=== PATIENT | female | born 1950 | race Caucasian/White ===

== ENCOUNTER 2017-05-10 05:58 | Day surgery (SDC) | payer MEDICARE, BC ==
[2017-05-08 11:33] VITALS: BMI 30.9
[2017-05-10] MEDS ORDERED: Bupivacaine/Epinephrine 0.25% 30 ML VIAL ONE (06:45)
[2017-05-10] MEDS ORDERED: Fentanyl 100 MCG/2 ML VIAL ONE (07:11)
[2017-05-10] MEDS ORDERED: Midazolam HCl 2 mg/2 ml Vial ONE ×2 (07:11→07:26)
[2017-05-10] MEDS ORDERED: Ondansetron HCl/PF 4 MG/2 ML Vial ONE (07:40)
[2017-05-10] MEDS ORDERED: Dexamethasone 20 MG/5 ML VIAL ONE (07:40)
[2017-05-10] MEDS ORDERED: Ketorolac Tromethamine 30 MG/ML VIAL ONE (07:40)
[2017-05-10] MEDS ORDERED: Lidocaine 1% PF 5 ML VIAL ONE (07:40)
[2017-05-10] MEDS ORDERED: Propofol 200 MG/20 ML VIAL ONE (07:40)
[2017-05-10] MEDS ORDERED: Glycopyrrolate 0.2 MG/ML 5 ML SYRINGE ONE (07:40)
--- NOTE | 2017-05-10 09:04 | RAD ---
SINGLE VIEW OF CHEST: Date: 05/10/17 COMPARISON: 02/23/17. HISTORY: MediPort placement for breast cancer. FINDINGS: Single view of the chest shows normal sized cardiomediastinal silhouette. A left subclavian Mediport is seen with its tip in the superior vena cava. No pneumothorax is seen. There is no evidence of co nsolidation, mass, or pleural effusion. IMPRESSION: No evidence of acute cardiopulmonary disease. POS: [facility]
--- NOTE | 2017-05-10 10:46 | OP ---
DATE OF PROCEDURE: 05/10/2017 PREOPERATIVE DIAGNOSIS: Breast cancer. SURGEON: Gasper Lindsay M.D. PROCEDURE PERFORMED: MediPort placement. INDICATIONS: This is a 66-year-old female who was diagnosed with metastatic breast cancer and needs access for chemotherapy. FINDINGS: Left subclavian placement. PROCEDURE: After informed consent was obtained, the patient was taken to the operating room and giv en total intravenous anesthesia, placed in the supine position. Her chest was prepped and draped in the usual fashion. Local anesthesia infiltrated subcutaneously and deep. An introducer needle ins erted left subclavian. Good backflow of venous blood. J-wire threaded easily. The skin and subcut aneous anesthetized. A transverse chest wall incision was performed. The subcu divided sharply. A pocket was created sharply with electrocautery. Then utilizing the tunneling device, the 2 incisio ns were connected and the catheter placed through the tunnel. The catheter was connected to the Common Sensing iPort and the system was flushed with heparinized saline. Then the catheter was cut to size and a p eel-away introducer inserted over the wire. The wire was removed, the catheter inserted through the peel-away introducer and the peel-away introducer removed. Fluoroscopy again performed. This show ed good placement in superior vena cava. The port was attached to the chest wall with interrupted 2 -0 Prolene suture. Subcutaneous reapproximated with interrupted 3-0 Vicryl. The system was accesse d with a Arreola needle. Good backflow of venous blood, flushed with heparinized saline. The skin cl osed with a running subcuticular 4-0 Rapide. Dermabond applied. The patient tolerated the procedur e well and transferred to recovery in good condition. Sponge and needle count verified correct x2.
== END 2017-05-10 10:01 | disposition home or self-care (01) ==
LOC: SDC 05:58
PROVIDERS: ATTEND Surgery
PROC: 05H633Z Insertion of Infusion Device into Left Subclavian Vein, Percutaneous Approach (ICD-10-PCS; principal; 2017-05-10)
DX: C50.919 Malignant neoplasm of unspecified site of unspecified female breast (principal); I10 Essential (primary) hypertension; G47.33 Obstructive sleep apnea (adult) (pediatric); F32.9 Major depressive disorder, single episode, unspecified; Z90.49 Acquired absence of other specified parts of digestive tract; Z90.710 Acquired absence of both cervix and uterus; Z98.890 Other specified postprocedural states; Z98.891 History of uterine scar from previous surgery; Z88.5 Allergy status to narcotic agent; Z91.041 Radiographic dye allergy status; Z91.048 Other nonmedicinal substance allergy status; Z79.899 Other long term (current) drug therapy
CPT/HCPCS: 36561; 71010; C1788; J0131; J1100; J1170; J1642; J1885; J2001; J2250; J2405; J2704; J3010

== ENCOUNTER 2017-09-04 13:46 | Day surgery (SDC) | payer MEDICARE, BC ==
[2017-09-04] MEDS ORDERED: diphenhydrAMINE 25 MG CAP PO SCH (14:30)
[2017-09-04] MEDS ORDERED: Acetaminophen 500 MG TAB PO SCH (14:30)
[2017-09-04 23:02] VITALS: BP 132/60; TEMP 97.7
[2017-09-04 23:18] LABS: #Lymphocytes 0.6 thou/uL (1.20-3.40); #Monocytes 0.1 thou/uL (0.11-0.59); #Neutrophils 1.4 thou/uL (1.40-6.50); %Eosinophils 1.1 % (0.0-10.0); %Lymphocytes 26.5 % (21.0-51.0); %Monocytes 6.6 % (0.0-10.0); Mean Platelet Volume 8.1 fL (7.4-10.4); Red Blood Cell (RBC) Count 3.17 mill/uL (4.20-5.40); White Blood Cell (WBC) Count 2.2 thou/uL (4.8-10.8)
== END 2017-09-04 23:11 | disposition home or self-care (01) ==
LOC: ONC/OP 13:46
PROVIDERS: ATTEND Internal Medicine Hematology & Oncology
PROC: 30233N1 Transfusion of Nonautologous Red Blood Cells into Peripheral Vein, Percutaneous Approach (ICD-10-PCS; principal; 2017-09-04)
DX: D64.9 Anemia, unspecified (principal); D69.6 Thrombocytopenia, unspecified; I10 Essential (primary) hypertension; Z88.5 Allergy status to narcotic agent; Z91.041 Radiographic dye allergy status; Z91.048 Other nonmedicinal substance allergy status; Z90.49 Acquired absence of other specified parts of digestive tract; Z90.710 Acquired absence of both cervix and uterus; Z98.890 Other specified postprocedural states; Z85.3 Personal history of malignant neoplasm of breast; Z80.0 Family history of malignant neoplasm of digestive organs
CPT/HCPCS: 36430; 80053; 82248; 83615; 84100; 84550; 85025; 86850; 86900; 86901; P9016

== ENCOUNTER 2017-09-17 13:37 | Emergency (ER) | payer MEDICARE, BC ==
[2017-09-17 14:09] LABS: #Lymphocytes 0.7 thou/uL (1.20-3.40); #Monocytes 0.2 thou/uL (0.11-0.59); #Neutrophils 2.5 thou/uL (1.40-6.50); %Basophils 1.3 % (0.0-1.0); %Eosinophils 0.7 % (0.0-10.0); %Lymphocytes 19.1 % (21.0-51.0); %Monocytes 6.3 % (0.0-10.0); %Neutrophils 72.6 % (42.0-75.0); Hemoglobin 12.6 g/dL (12.0-16.0); Mean Corpuscular HGB CONC 34.8 g/dL (32.0-36.0); Mean Corpuscular Hemoglobin 34.1 pg (27.0-31.0); Mean Corpuscular Volume 97.9 fl (81.0-99.0); Mean Platelet Volume 7.8 fL (7.4-10.4); Platelet Count 357 thou/uL (130-400); RBC Distribution Width 15.6 % (11.5-14.5); Red Blood Cell (RBC) Count 3.69 mill/uL (4.20-5.40); White Blood Cell (WBC) Count 3.4 thou/uL (4.8-10.8)
[2017-09-17] MEDS ORDERED: Metoprolol Tartrate 5 MG/5 ML VIAL ONE (14:14)
[2017-09-17 14:34] LABS: CKMB 0.3 ng/mL (0-6.6); Troponin I 0.032 ng/mL (< 0.028)
[2017-09-17 14:35] LABS: Anion Gap 14 mmol/L (10-20); BUN (Urea Nitrogen) 15 mg/dL (9.8-20.1); Carbon Dioxide 21 mmol/L (23-31); Chloride 105 mmol/L (98-107); Potassium 4.3 mmol/L (3.5-5.1); Sodium 136 mmol/L (136-145)
[2017-09-17 14:36] LABS: ALT (SGPT) 29 U/L (8-55); AST (SGOT) 24 U/L (5-34); Albumin 3.9 g/dL (3.4-4.8); Alkaline Phosphatase 88 U/L (40-150); Bilirubin, Total 1.5 mg/dL (0.2-1.2); Calc. Creatinine Clearance 0 mL/min (70-130); Calcium 9.9 mg/dL (7.8-10.44); Estimated GFR-MDRD 73; Globulin 3.2 g/dL (2.4-3.5); Glucose 175 mg/dL (80-115); Protein, Total 7.1 g/dL (6.0-8.3)
--- NOTE | 2017-09-17 14:57 | RAD ---
CHEST ONE VIEW: History: 62-year-old female with tachycardia. Comparison: 05-10-17 FINDINGS: Left subclavian catheter and injection port. Monitor leads overlie the chest. Heart size is within no rmal limits. The lungs are clear. IMPRESSION: No acute intrathoracic disease. POS: [facility]
--- NOTE | 2017-09-17 16:54 | NM ---
VENTILATION\ERFUSION STUDY 09/17/17 HISTORY: Coughing and shortness of breath the past couple of days. Heart palpitations. RADIOPHARMACEUTICALS: 10.4 millicuries Xenon 133, gas inhaled and 6.6 millicuries technetium 99m labeled MAA, IV. FINDINGS: There is normal uptake and distribution of radiotracer seen throughout the lungs bilaterally on the v entilation portion of the study with normal washout on the washout images. Perfusion imaging demonst rates normal uptake and distribution of radiotracer throughout the lungs bilaterally. No segmental or subsegmental perfusion defect is identified. There is no ventilation perfusion mismatch identified. IMPRESSION: Normal ventilation\perfusion study with very low probability for pulmonary embolus. POS: [facility]
== END 2017-09-17 17:24 | disposition home or self-care (01) ==
LOC: ERS 13:37
DX: R00.0 Tachycardia, unspecified (principal); E11.9 Type 2 diabetes mellitus without complications; E03.9 Hypothyroidism, unspecified; E78.5 Hyperlipidemia, unspecified; I10 Essential (primary) hypertension; F32.9 Major depressive disorder, single episode, unspecified; Z79.899 Other long term (current) drug therapy
CPT/HCPCS: 71045; 78582; 82553; 84484; 93005; 96374; 99285; A9540; A9558; 80053; 84443; 85025

== ENCOUNTER 2017-09-18 17:44 | Observation (INO) | payer MEDICARE, BC ==
[2017-09-18] MEDS: Sodium Chloride 0.9% 1,000 ML IV SCH (18:30)
[2017-09-18 18:42] VITALS: BMI 28.5
[2017-09-18] MEDS ORDERED: predniSONE 50 MG TAB PO SCH (18:45)
[2017-09-18] MEDS ORDERED: diphenhydrAMINE 50 MG/ML VIAL IVP SCH (18:45)
[2017-09-18 18:50] LABS: #Eosinphils 0.1 thou/uL (0.0-0.7); #Lymphocytes 0.8 thou/uL (1.20-3.40); #Monocytes 0.5 thou/uL (0.11-0.59); #Neutrophils 2.5 thou/uL (1.40-6.50); %Eosinophils 1.5 % (0.0-10.0); %Lymphocytes 20.7 % (21.0-51.0); %Monocytes 12.4 % (0.0-10.0); %Neutrophils 64.4 % (42.0-75.0); Hemoglobin 11.1 g/dL (12.0-16.0); Mean Corpuscular HGB CONC 34.9 g/dL (32.0-36.0); Mean Corpuscular Hemoglobin 34.3 pg (27.0-31.0); Mean Corpuscular Volume 98.2 fl (81.0-99.0); Mean Platelet Volume 7.2 fL (7.4-10.4); Platelet Count 282 thou/uL (130-400); RBC Distribution Width 15.3 % (11.5-14.5); Red Blood Cell (RBC) Count 3.25 mill/uL (4.20-5.40)
[2017-09-18 19:13] LABS: ALT (SGPT) 29 U/L (8-55); AST (SGOT) 26 U/L (5-34); Albumin 3.7 g/dL (3.4-4.8); Alkaline Phosphatase 83 U/L (40-150); Anion Gap 13 mmol/L (10-20); BUN (Urea Nitrogen) 13 mg/dL (9.8-20.1); Bilirubin, Total 1.3 mg/dL (0.2-1.2); Calc. Creatinine Clearance 79 mL/min (70-130); Calcium 9.7 mg/dL (7.8-10.44); Carbon Dioxide 25 mmol/L (23-31); Chloride 102 mmol/L (98-107); Estimated GFR-MDRD 80; Glucose 106 mg/dL (80-115); Magnesium 1.9 mg/dL (1.6-2.6); Phosphorus 3.5 mg/dL (2.3-4.7); Potassium 4.1 mmol/L (3.5-5.1); Protein, Total 6.7 g/dL (6.0-8.3); Sodium 136 mmol/L (136-145)
[2017-09-18 19:18] LABS: Troponin I 0.037 ng/mL (< 0.028)
--- NOTE | 2017-09-18 20:09 | HP ---
DATE OF CONSULTATION: 09/18/2017 CHIEF COMPLAINT: Tachycardia and shortness of breath. HISTORY OF PRESENT ILLNESS: Mrs. Israel is a very pleasant 66-year-old white female, who comes to the hospital for direct admission for tachycardia and shortness of breath. She was seen yesterday in th e office. She has a history of recently diagnosed breast cancer. She is on chemotherapy for this wi th Taxol. She presented to the office and the heart rate was 140. She voiced complains of being monse rt of breath with any exertion. She was sent immediately to the ER for concerns of this being an inf ectious process versus pulmonary embolism. She had a V/Q scan that was low probability. This was do ne instead of a CT given her dye allergy. She also had blood work, showed that she was not anemic, s o she was sent home after a dose of IV metoprolol. I called her today to see how she was doing and s he still had heart rates in the 140s, so I advised her that we need to admit her to further evaluate as this might be some sort of infection versus to the midst very small pulmonary embolism. She comes to the hospital now. She continues to be short of breath with any exertion. Her heart rate at rest is about 110. She just gets up and starts walking and goes immediately to 140s to 160s. Denies any chest pain, tightness, pressure. Admits to bilateral lower extremity pain due to her neuropathy fro m the chemotherapy. She has had a cough for the last 2 days. PAST MEDICAL HISTORY: 1. Hypertension. 2. Hypothyroidism. 3. Musculoskeletal chest pain. 4. Breast cancer as well. PAST SURGICAL HISTORY: 1. Right lumpectomy 10 years ago. 2. Appendectomy. 3. Cholecystectomy. 4. . 5. Tonsillectomy. 6. Hysterectomy. SOCIAL HISTORY: Social alcohol use. No tobacco or drug use. FAMILY HISTORY: Noncontributory. OUTPATIENT MEDICATIONS: Include: 1. Omeprazole 10 mg a day. 2. Loratadine 10 mg a day. 3. Cymbalta 20 mg a day. 4. Synthroid 88 mcg a day. ALLERGIES: IODINE causes her to have swelling of her throat, CODEINE, and ADHESIVES. REVIEW OF SYSTEMS: Twelve-point review of systems was done and is all negative unless stated in the history of present illness. PHYSICAL EXAMINATION: VITAL SIGNS: Temperature 98.2, respiratory rate 18, satting 98% on room air. Blood pressure 152/98, pulse 110. GENERAL: Awake, alert, oriented x3, in no distress. HEENT: Normocephalic, atraumatic. She is wearing a blonde wig. NECK: Supple. No JVD. LUNGS: Clear to auscultation, no dullness. CARDIOVASCULAR: S1, S2, no S3 or S4. No murmurs, tachycardic. ABDOMEN: Soft, positive bowel sounds. Negative Garvin. Negative McBurney. EXTREMITIES: Trace edema. Tender to palpation distally from her neuropathy she thinks. SKIN: Warm and dry. LABORATORY WORK: Pending right now. EKG shows sinus tachycardia. Chest x-ray is pending. ASSESSMENT AND PLAN: 1. Sinus tachycardia and shortness of breath. This could be a viral syndrome; however, her heart ra te is much more dramatic than what I would expect just from having an upper respiratory infection. Janine e will check for the flu just in case anyway. Otherwise, we will get general blood work concerned ev en though she had a negative V/Q scan that she might still have a pulmonary embolism as this would be the only thing that would make sense in the setting of shortness of breath and sinus tachycardia. Janine stevenson will do a CT of the chest with contrast. We will pretreat with steroids and IV Benadryl to prevent her from having a reaction from the contrast. Otherwise, we will do blood cultures as well. 2. Breast cancer, stable at this time. We will have to hold off on any chemotherapy for now. We wi ll ask Dr. Olguin to come well as Dr. Olguin to come and evaluate as well. 3. FULL CODE. 4. Deep venous thrombosis prophylaxis. We will place on Lovenox for this and for possible pulmonary embolism, and gastrointestinal prophylaxis. 5. Disposition: Pending clinical evaluation and further testing.
--- NOTE | 2017-09-18 20:12 | RAD ---
PA AND LATERAL VIEWS OF THE CHEST 09/18/17 HISTORY: Shortness of breath. FINDINGS: Comparison made to exam of 02/23/17. There is continued elevation of the right hemidiaphragm. There is a left subclavian Port-A-Cath with tip in the position of the SVC. The heart size is normal. The lungs are well expanded without focal a reas of consolidation, pneumothorax or pleural effusions. There are surgical clips in the right axill a. IMPRESSION: No radiographic evidence of acute cardiopulmonary process. POS: [facility]
[2017-09-18] MEDS: Enoxaparin Sodium 60 MG/0.6 ML SYRINGE SC SCH (20:31)
[2017-09-19 04:19] LABS: Bilirubin Negative (Negative); Blood, Urine Negative (Negative); Clarity CLEAR (Clear); Glucose, Urine (Dipstick) Negative (Negative); Leukocyte Negative (Negative); Nitrite Negative (Negative); Protein, Urine (Dipstick) Negative (Neg-Trace); Urobilinogen 0.2 mg/dL (0.2-1.0)
[2017-09-19 04:21] LABS: Pathc Cast-AUWi Flag 0.13 (0-2.49)
[2017-09-19 05:00] LABS: #Lymphocytes 0.6 thou/uL (1.20-3.40); #Monocytes 0.1 thou/uL (0.11-0.59); #Neutrophils 2.4 thou/uL (1.40-6.50); %Eosinophils 0.4 % (0.0-10.0); %Lymphocytes 18.7 % (21.0-51.0); %Monocytes 2.5 % (0.0-10.0); %Neutrophils 78.4 % (42.0-75.0); Hemoglobin 10.9 g/dL (12.0-16.0); Mean Corpuscular HGB CONC 35.4 g/dL (32.0-36.0); Mean Corpuscular Hemoglobin 34.7 pg (27.0-31.0); Mean Platelet Volume 7.6 fL (7.4-10.4); Platelet Count 275 thou/uL (130-400); RBC Distribution Width 15.4 % (11.5-14.5); Red Blood Cell (RBC) Count 3.15 mill/uL (4.20-5.40); White Blood Cell (WBC) Count 3.1 thou/uL (4.8-10.8)
[2017-09-19 05:22] LABS: Anion Gap 10 mmol/L (10-20); BUN (Urea Nitrogen) 10 mg/dL (9.8-20.1); Calc. Creatinine Clearance 92 mL/min (70-130); Calcium 9.1 mg/dL (7.8-10.44); Carbon Dioxide 23 mmol/L (23-31); Chloride 109 mmol/L (98-107); Estimated GFR-MDRD Greater than 90; Glucose 164 mg/dL (80-115); Potassium 4.4 mmol/L (3.5-5.1); Sodium 138 mmol/L (136-145)
[2017-09-19 05:23] LABS: Bacteria/HPF Rare-Few HPF (None Seen); Hyaline Casts/LPF NONE SEEN LPF (0-3 Hyaline); RBC/HPF 0-3 HPF (0-3); Squamous Epithelial 0-3 HPF (0-3); WBC/HPF 0-3 HPF (0-3)
[2017-09-19] MEDS: Sodium Chloride 0.9% 1,000 ML IV SCH (05:55)
[2017-09-19] MEDS ORDERED: Levothyroxine Sodium 88 MCG TAB PO SCH (06:00)
--- NOTE | 2017-09-19 07:39 | ULT ---
GALLBLADDER ULTRASOUND: Date: 09/19/16 HISTORY: 66-year-old female with abnormal LFTs. FINDINGS: Liver echogenicity is increased and coarse, evidence for nonspecific hepatic parenchymal process. The gallbladder has been surgically removed. Common bile duct is 0.3 cm. Visualized pancreas and right k idney are unremarkable. IMPRESSION: Coarse increased liver echogenicity consistent with nonspecific diffuse hepatic parenchymal process, including fatty change. Status post cholecystectomy without ductal dilatation. POS: [facility]
[2017-09-19] MEDS ORDERED: predniSONE 50 MG TAB PO SCH (08:00)
[2017-09-19] MEDS ORDERED: Loratadine 10 MG TAB PO SCH (09:00)
[2017-09-19] MEDS: Enoxaparin Sodium 60 MG/0.6 ML SYRINGE SC SCH (10:19)
--- NOTE | 2017-09-19 11:19 | CT ---
CT ARTERIOGRAM CHEST WITH IV CONTRAST AND 3D MIP IMAGING: HISTORY: Chest pain. Tachycardia. Dyspnea. FINDINGS: There is good contrast opacification of the pulmonary arteries and thoracic aorta, with normal branch ing of the great vessels. Mild scarring is present at each lung base. No lobar consolidation, pleur al fluid, or pneumothorax are visible. Postoperative changes of the right breast and axilla are evident. IMPRESSION: No CT evidence of pulmonary embolus. POS: [facility]
[2017-09-19 12:50] VITALS: BP 130/58; TEMP 98.2
--- NOTE | 2017-09-19 13:28 | DIS ---
DATE OF ADMISSION: 09/18/2017 DATE OF DISCHARGE: 09/19/2017 DISCHARGING PHYSICIAN: Herminio Macedo M.D. SUMMARY: Ms. Israel was admitted from home due to her being tachycardia. She was in sinus tachycardi a. She was started on IV fluids. CT of the chest was done to make sure it is not PE, this was negat janis. She had some scarring in the bilateral lung bases, which was old but no acute issue. Her BNP w as unremarkable. Her echocardiogram done yesterday in the office was unremarkable as well. Her hear t rate actually went down nicely after IV fluids were given and she has been eating not well because she feels the taste in her mouth is gone because of the chemotherapy. She feels much better this mor yolanda. She has been urinating quite well with no problems. Her influenza titers were negative. Her blood cultures remained negative so far. Abdominal ultrasound showed a fatty liver and her blood wor k has remained stable with a stable hemoglobin and really her bilirubin is coming down. Otherwise, s he should be stable for discharge. Followup appointments with myself in [address] Olguin as scheduled for continued chemotherapy. Over 30 minutes were spent at bedside for discharge.
== END 2017-09-19 13:48 | disposition home or self-care (01) ==
LOC: 2SW 17:44
PROVIDERS: ADMIT Internal Medicine Cardiovascular Disease; ATTEND Internal Medicine Cardiovascular Disease
DX: R00.0 Tachycardia, unspecified (principal); R06.02 Shortness of breath; I10 Essential (primary) hypertension; E03.9 Hypothyroidism, unspecified; C50.919 Malignant neoplasm of unspecified site of unspecified female breast; R94.5 Abnormal results of liver function studies; Z91.041 Radiographic dye allergy status; Z88.5 Allergy status to narcotic agent; Z88.8 Allergy status to other drugs, medicaments and biological substances; Z79.899 Other long term (current) drug therapy; Z90.710 Acquired absence of both cervix and uterus; Z90.49 Acquired absence of other specified parts of digestive tract; Z90.89 Acquired absence of other organs; Z90.10 Acquired absence of unspecified breast and nipple; Z98.890 Other specified postprocedural states
CPT/HCPCS: 71046; 71275; 76705; 80048; 81001; 83735; 83880; 84100; 84484; 85025; 87040; 87804 ×2; 96361; 96372 ×2; 96374; G0378 ×2; 36415; 80053; 84443; J1200; J1650

== ENCOUNTER 2017-10-16 16:50 | Emergency (ER) | payer MEDICARE, BC ==
[2017-10-16] MEDS ORDERED: HYDROcodone/Acetaminophen 5/325 mg Tablet ONE (18:13)
--- NOTE | 2017-10-16 18:27 | RAD ---
RIGHT KNEE: 10/16/17 Four views. HISTORY: Fall with injury and pain to knee. There are mild degenerative changes noted. Mild narrowing of the medial joint space. Mild chondrocalc inosis seen in the lateral joint space. Mild spurring from the femoral and tibial condyles and mild s purring from the patella. No evidence of joint effusion. No evidence of acute fracture. IMPRESSION: Mild degenerative changes as described. POS: [facility]
== END 2017-10-16 18:21 | disposition home or self-care (01) ==
LOC: ERS 16:50
DX: S80.01XA Contusion of right knee, initial encounter (principal); E03.9 Hypothyroidism, unspecified; E78.5 Hyperlipidemia, unspecified; I10 Essential (primary) hypertension; F32.9 Major depressive disorder, single episode, unspecified; Z85.3 Personal history of malignant neoplasm of breast; W01.10XA Fall on same level from slipping, tripping and stumbling with subsequent striking against unspecified object, initial encounter

== ENCOUNTER 2018-03-06 08:00 | Outpatient (CLI) | payer MEDICARE, BC ==
[2018-03-06 08:39] LABS: Estimated GFR-MDRD - POC Greater than 90
[2018-03-06] MEDS ORDERED: Iopamidol 370 76% 100 ML VIAL ONE (09:57)
--- NOTE | 2018-03-06 11:01 | CT ---
CT THORAX WITH IV CONTRAST CT ABDOMEN WITH IV CONTRAST: Date: 03-06-18 History: Right breast cancer. Patient is post chemotherapy and radiation. Patient complains of left s dalila body pain and bruising after recent fall. Comparison: CT angiogram thorax 09-19-17, PET CT 10-11-17. FINDINGS: There is prominent skin thickening and area of decreased attenuation in the lateral right breast whic h may be related to post-surgical and post radiation changes. Surgical clips are seen in the right axilla. A left subclavian Mediport catheter is noted in place. T ip of the catheter is in the most proximal SVC. Mild vascular calcifications are seen in the thoracic aorta. Thoracic aorta is normal in caliber. No enlarged lymph nodes are seen by CT size criteria. There is a small pulmonary nodule seen within the right upper lobe adjacent to the major fissure on t he right. This was not seen on prior exams. A few adjacent linear densities are also present in this region. No additional pulmonary nodule or mass is seen. There is partial visualization of a comminuted fracture involving the left greater tuberosity of the humerus and fracture also likely involves the humeral head. However, dedicated views of the left shou lder recommended for further evaluation. There is no dislocation seen on this exam. Only the humeral head is imaged on the left. There are a few sclerotic densities seen in each humeral head seen on prior study and is probably rel ated to small bone islands. No additional lytic or sclerotic osseous lesions are appreciated. There a re degenerative changes of the thoracic spine. CT ABDOMEN: Post cholecystectomy changes are again present. The liver, spleen, pancreas, bilateral adrenal glands, and kidneys as well as opacified bowel demonst rate a normal CT appearance. There are colonic diverticula involving the ascending colon as well as c olon in the region of the hepatic flexure with diverticula also seen involving the visualized descend ing colon. Vascular calcification in the abdominal aorta and iliac arteries. There is no free fluid, fluid collection, or lymphadenopathy seen in the abdomen. Multiple calcified injection granulomata are seen in the subcutaneous soft tissues in each gluteal re gion. No lytic or sclerotic osseous lesions are seen. There are degenerative changes in the lower lumbar sp ine. IMPRESSION: 1. Pulmonary nodule right upper lobe which is adjacent to the major fissure. Follow up evaluation in 4 months is recommended given that this does represent an interval change from prior PET CT exam as w ell as CTA study on 09-19-17. No additional pulmonary nodule or mass is seen. 2. Mildly comminuted fracture involving the greater tuberosity left humerus. The fracture also extend s to the humeral head. However, the proximal left humerus is incompletely imaged on this study. Dedic ated views of the left shoulder are recommended for further evaluation. 3. Findings likely attributable to post radiation and post-surgical changes right breast. 4. No evidence of lymphadenopathy. 5. Colonic diverticulosis. 6. Cholecystectomy. 7. Above findings were discussed with Dr. Olguin at 03-06-18 at 0911 hours. POS: [facility]
== END 2018-03-06 08:01 | disposition home or self-care (01) ==
LOC: CT 08:00
PROVIDERS: ATTEND Internal Medicine Hematology & Oncology
DX: C50.919 Malignant neoplasm of unspecified site of unspecified female breast (principal); R91.1 Solitary pulmonary nodule; K57.30 Diverticulosis of large intestine without perforation or abscess without bleeding; M84.422A Pathological fracture, left humerus, initial encounter for fracture; Z90.49 Acquired absence of other specified parts of digestive tract
CPT/HCPCS: 71260; 74160; 82565

== ENCOUNTER 2018-03-22 14:55 | Outpatient (CLI) | payer MEDICARE, BC | END 2018-03-22 14:56 | disposition home or self-care (01) | LOC: BICULT 14:55 | PROVIDERS: ATTEND Family Medicine | DX: M79.631 Pain in right forearm (principal); M79.89 Other specified soft tissue disorders ==

== ENCOUNTER 2018-08-26 08:43 | Outpatient (CLI) | payer MEDICARE, BC ==
--- NOTE | 2018-08-26 11:03 | CT ---
CT THORAX WITH CONTRAST CT ABDOMEN WITH CONTRAST: Date: 08-26-18 History: 67-year-old female with C50.111 malignant neoplasm of central portion of right female breast. Comparison: CT thorax and CT abdomen of 03-06-18. Technique: IV contrast: Isovue 370 Oral contrast: Redicat2 Single venous phase scan performed from thoracic inlet to iliac crests. Pelvis was not included. FINDINGS: Again noted are the asymmetrical densities and skin thickening involving the right breast consistent with post-surgical and/or post radiation changes. There is a new finding of an approximately 1 x 1 x 2 cm stellate lesion at the apical segment of the right upper lobe, with radiations abutting the apic al pleural surface. This has the appearance of infectious, inflammatory or scar type of lesion. There are much larger, broader such irregularly shaped multifocal patchy densities involving the ante rior segment of the right upper lobe, with broad bases against the right anterior pleural surface, as sociated with architectural distortion and traction of right bronchial branches. Adjacent anterior po rtions of right 3rd and 4th ribs appear sclerotic. Some of this extends into the right middle lobe. Previously, a tiny 5 mm pulmonary nodule was mentioned abutting the anterolateral aspect of the right major fissure. That particular lesion has been engulfed by the new extensive infiltrative process de scribed above, and is no longer visible as a separate entity. There are no discrete new round pulmonary nodules that are particularly suspicious for pulmonary meta stases. No mediastinal or hilar lymphadenopathy. Trachea and bilateral mainstem bronchi are patent an d clear. No pericardial effusion, pleural effusion, or pneumothorax. No liver metastases. Normal bila teral kidneys, spleen, adrenals and pancreas. No free fluid. No retroperitoneal, mayito hepatis or mes enteric lymphadenopathy. Non- aneurysmal but atherosclerotic abdominal aorta. No obvious major pathol ogy of colon and small intestine in the upper abdomen. No interval change in the intraabdominal sukhwinder nts. IMPRESSION: 1. New, extensive, infiltrate-like lesions involving much of the anterior segment of right upper lobe , with architectural distortion. Exact etiology is uncertain, but this may represent post radiation p neumonitis of the right lung or seqelae of such. Other possibility of infectious pneumonia is less l ikely. 2. Associated sclerotic changes of the right anterior ribs may also represent osseous post radiation changes. 3. Smaller, but similar appearing new stellate density at the apical segment of right upper lobe. Exa ct etiology is uncertain, but this is favored to be of inflammatory etiology or scar. Primary lung ca ncer is less likely. Continued follow up recommended. 4. No compelling evidence of metastatic disease within the thoracic cavity or abdominal cavity. POS: [facility]
== END 2018-08-26 08:44 | disposition home or self-care (01) ==
LOC: CT 08:43
PROVIDERS: ATTEND Internal Medicine Hematology & Oncology
DX: C50.111 Malignant neoplasm of central portion of right female breast (principal); J98.4 Other disorders of lung; R91.8 Other nonspecific abnormal finding of lung field
CPT/HCPCS: 71260; 74160

== ENCOUNTER 2018-08-26 14:41 | Outpatient (CLI) | payer MEDICARE, BC ==
--- NOTE | 2018-08-26 18:01 | ULT ---
RIGHT BREAST ULTRASOUND: FINDINGS: Palpable abnormality at the 11 o'clock position of the right breast demonstrates irregular heterogene ity, which is most likely corresponding to the postop changes on the mammogram; however, an underlyin g mass cannot be excluded. IMPRESSION: BI-RADS category 3-Probably benign findings. This should be either evaluated with a biopsy or a follow-up mammogram in six months. Discussed in person with the patient at 3:35 p.m. CODE CR POS: [facility]
== END 2018-08-26 14:42 | disposition home or self-care (01) ==
LOC: BICMAMMO 14:41
PROVIDERS: ATTEND Internal Medicine Hematology & Oncology
DX: Z08 Encounter for follow-up examination after completed treatment for malignant neoplasm (principal); N63.11 Unspecified lump in the right breast, upper outer quadrant; Z85.3 Personal history of malignant neoplasm of breast; Z80.3 Family history of malignant neoplasm of breast
CPT/HCPCS: 76642; 77066; G0279

== ENCOUNTER → 2018-09-12 | Day surgery (SDC) | payer MEDICARE, BC ==
--- NOTE | 2018-09-12 16:02 | ULT ---
ULTRASOUND GUIDED RIGHT BREAST BIOPSY ULTRASOUND GUIDED CLIP MARKING PLACEMENT WITHIN RIGHT BREAST 09/12/18 INDICATION: History of prior right breast cancer, status post lumpectomy with newly developed palpable mass withi n the upper outer quadrant of the right breast. Patient has undergone preceding diagnostic imaging wh ich is referenced prior to the procedure. TECHNIQUE: Procedural consent was obtained from the patient prior to the procedure and the patient was escorted to the procedural suite. PROCEDURE: Standard sterile prepping and draping of the right breast was performed. The mass of interest was loc alized. Topical anesthesia was achieved with buffered 1% lidocaine and a small skin incision was made through which 13 gauge trocar and 14 gauge biopsy needle were introduced and advanced to the leadin g edge of the mass confirmed sonographically. Imaging was stored for documentation. Subsequently 5 co re specimens of the mass were acquired under real time sonography with imaging stored for documentati on. These specimens were placed into a sealed Formalin container which were sent to Pathology for fur ther analysis. All devices were then removed from the patient. Biopsy marking clip was then advanced and deployed within the site of biopsy. This was confirmed sono graphically with imaging stored for documentation. No procedural complications. Patient was escorted to mammography to undergo postprocedural clip place ment views. IMPRESSION: 1. Technically successful ultrasound guided biopsy of right breast mass. 2. Technically successful clip marking placement at the site of right breast biopsy. Pathology results are pending. Patient will be notified of the results when they are received. POS: [facility]
== END ==
LOC: BICULT 12:26
PROVIDERS: ATTEND Surgery
PROC: 0HBT3ZX Excision of Right Breast, Percutaneous Approach, Diagnostic (ICD-10-PCS; principal; 2018-09-12)
DX: N60.31 Fibrosclerosis of right breast (principal); N64.1 Fat necrosis of breast; R92.0 Mammographic microcalcification found on diagnostic imaging of breast; Z79.899 Other long term (current) drug therapy; Z88.5 Allergy status to narcotic agent; Z91.040 Latex allergy status; Z91.048 Other nonmedicinal substance allergy status
CPT/HCPCS: 19083; 88305

== ENCOUNTER 2019-01-22 12:31 | Outpatient (CLI) | payer MEDICARE, BC ==
--- NOTE | 2019-01-22 13:17 | CT ---
CT CHEST WITHOUT CONTRAST CLINICAL INDICATION: Abnormal chest x-ray in a patient with history of breast cancer. COMPARISON: 08/26/2018. No recent chest x-rays available for comparison. FINDINGS: Aorta: Limited evaluation due to lack of intravenous contrast. Vascular calcifications are seen in th e thoracic and visualized upper abdominal aorta. The thoracic aorta is normal in caliber. Lungs: Again noted are the patchy and parenchymal densities within the anterior and anterolateral rig ht upper lobe with associated linear densities extending to the hilum similar to the prior exam. Again noted is mild sclerosis of overlying ribs in this region as well. These findings are at the lev el of the right breast as well, and findings are most likely attributable to post radiation type changes. No discrete pulmonary nodule, mass, or pleural effusion is seen. Mediastinum: Limited evaluation due to lack of intravenous contrast, but no enlarged lymph nodes are seen. Thyroid gland: Grossly normal appearance where visualized for a nonenhanced appearance. Osseous structures: Sclerosis of anterior right upper ribs as described above most likely attributabl e to postradiation type changes. Subcentimeter sclerotic densities are seen in each humeral head probably related to bone islands. No additional lytic or sclerotic osseous lesions are seen. Chest wall: Skin thickening is present involving the right breast with the parenchymal changes also a gain seen in the right breast likely related to combination of postsurgical and postradiation changes. Surgical clips are again seen in the right axillary region. A left subclavian Mediport williams ter remains in place with tip overlying the most proximal SVC. Upper abdomen: Postcholecystectomy changes are again seen. No other interval change from prior contrasted exam. IMPRESSION: 1. Stable pleural and parenchymal changes in the right upper lobe which is thought to most likely be attributable to postradiation type changes. 2. Postsurgical and postradiation changes right breast. 3. No pulmonary nodule or mass is seen within the lungs bilaterally. Chest is overall unchanged norah red to prior study.
== END 2019-01-22 12:32 | disposition home or self-care (01) ==
LOC: CT 12:31
PROVIDERS: ATTEND Internal Medicine Critical Care Medicine
DX: R91.8 Other nonspecific abnormal finding of lung field (principal); Z98.890 Other specified postprocedural states
CPT/HCPCS: 71250

== ENCOUNTER 2019-04-18 08:34 | Outpatient (CLI) | payer MEDICARE, BC ==
--- NOTE | 2019-04-18 09:43 | ULT ---
Abdominal ultrasound: 04/18/2019 COMPARISON: None HISTORY: Abdominal pain TECHNIQUE: Multiplanar grayscale sonographic imaging of the abdomen obtained. FINDINGS: The gallbladder is surgically absent. There is a 2.0 x 2.5 cm hypoechoic mass adjacent to the pancreatic head which may signify peripancrea tic lymphadenopathy or less likely, intrinsic mass lesion of pancreas. The common bile duct measures 3 mm, within normal limits. There are numerous hypoechoic nodules/masses within the liver, suspicious for metastatic disease. Thi s includes a mass measuring up to 9.9 x 14.5 cm. Right kidney measures 9 cm in craniocaudal dimension and demonstrates no stone, hydronephrosis, or ma ss lesion. Left kidney measures 9.7 cm in craniocaudal dimension and demonstrates no stone, hydronephrosis, or m ass. Spleen measures 10.1 cm, within normal limits. Imaged IVC and aorta appear grossly unremarkable. IMPRESSION: Numerous hepatic mass lesions measuring up to 14.5 cm. Masses in the region of the pancre atic head suggesting metastatic adenopathy. Findings within the liver are concerning for extensive hepatic metastatic disease. CT examination is advised. Dr. Funk made aware at 9:35 AM 04/18/2019.
== END 2019-04-18 08:35 | disposition home or self-care (01) ==
LOC: ULT 08:34
PROVIDERS: ATTEND Family Medicine
DX: R10.9 Unspecified abdominal pain (principal); R16.0 Hepatomegaly, not elsewhere classified
CPT/HCPCS: 76700

== ENCOUNTER 2019-04-19 16:18 | Emergency (ER) | payer MEDICARE, BC ==
[~2019-04-19 16:18] MED LIST: Iopamidol 370 76% 50 ML VIAL FS ONE
[2019-04-19 17:06] LABS: #Eosinphils 0.2 thou/uL (0.0-0.7); #Lymphocytes 1.4 thou/uL (1.20-3.40); #Monocytes 0.8 thou/uL (0.11-0.59); #Neutrophils 6.1 thou/uL (1.40-6.50); %Monocytes 9.9 % (0.0-10.0); %Neutrophils 71.1 % (42.0-75.0); Hemoglobin 13.6 g/dL (12.0-16.0); Mean Corpuscular HGB CONC 33.6 g/dL (32.0-36.0); Mean Corpuscular Hemoglobin 32.3 pg (27.0-31.0); Mean Corpuscular Volume 96.1 fL (78.0-98.0); Mean Platelet Volume 7.7 fL (7.4-10.4); Platelet Count 277 thou/uL (130-400); RBC Distribution Width 12.3 % (11.5-14.5); Red Blood Cell (RBC) Count 4.21 mill/uL (4.20-5.40); White Blood Cell (WBC) Count 8.5 thou/uL (4.8-10.8)
--- NOTE | 2019-04-19 17:06 | RAD ---
CHEST TWO VIEWS: HISTORY: Abdominal distention. Severe pain. COMPARISON: 09/18/2017 FINDINGS: Two views of the chest show a normal sized heart and mediastinal silhouette. A Mediport is unchanged in position. There is no evidence of consolidation, mass, or pleural effusion. IMPRESSION: No evidence of acute cardiopulmonary disease. POS: [facility]
[2019-04-19 17:28] LABS: ALT (SGPT) 82 U/L (8-55); AST (SGOT) 81 U/L (5-34); Albumin 3.8 g/dL (3.4-4.8); Alkaline Phosphatase 164 U/L (40-150); Anion Gap 13 mmol/L (10-20); BUN (Urea Nitrogen) 14 mg/dL (9.8-20.1); Bilirubin, Total 0.7 mg/dL (0.2-1.2); Calc. Creatinine Clearance 0 mL/min (70-130); Calcium 9.5 mg/dL (7.8-10.44); Carbon Dioxide 29 mmol/L (23-31); Chloride 101 mmol/L (98-107); Estimated GFR-MDRD 52; Globulin 3.3 g/dL (2.4-3.5); Glucose 93 mg/dL (80-115); Lipase 28 U/L (8-78); Potassium 4.4 mmol/L (3.5-5.1); Protein, Total 7.1 g/dL (6.0-8.3); Sodium 139 mmol/L (136-145)
[2019-04-19] MEDS ORDERED: traMADol HCl 50 MG TAB ONE (19:05)
[2019-04-19 20:26] LABS: Bacteria/HPF None Seen HPF (None Seen); Bilirubin Negative (Negative); Blood, Urine 1+ (Negative); Clarity Clear (Clear); Glucose, Urine (Dipstick) Normal (Negative); Leukocyte 75 Leu/uL (Negative); Nitrite Negative (Negative); Protein, Urine (Dipstick) Negative (Neg-Trace); Squamous Epithelial 0-3 HPF (0-3); Urobilinogen Normal mg/dL (Less than 2)
--- NOTE | 2019-04-19 20:52 | CT ---
CT Abdomen Pelvis WO Con History: Right upper quadrant pain Comparison: Ultrasound prior day Findings: Mild scarring lung bases. No pericardial effusion. Mass evaluation is limited without intra venous contrast. Abnormal hypoattenuation hepatic segment 5 and 6 as well as hepatic segment 8. No dilated loops of large or small bowel. Aortoiliac contour is nonaneurysmal. No hydroureteronephros is or nephroureterolithiasis. No secondary evidence of a recently passed stone. No suspicious osteolytic or osteoblastic lesions. Impression: 1. Multiple foci of hypoattenuation right lobe of liver likely corresponding to the metastatic diseas e seen on prior ultrasound. Evaluation is limited without intravenous contrast. 2. No nephroureterolithiasis or hydroureteronephrosis. No secondary evidence of a recently passed sto ne.
== END 2019-04-19 21:29 | disposition home or self-care (01) ==
LOC: ERS 16:18
DX: R16.0 Hepatomegaly, not elsewhere classified (principal); R94.5 Abnormal results of liver function studies; E03.9 Hypothyroidism, unspecified; E78.5 Hyperlipidemia, unspecified; E78.00 Pure hypercholesterolemia, unspecified; F32.9 Major depressive disorder, single episode, unspecified; Z85.3 Personal history of malignant neoplasm of breast; Z79.899 Other long term (current) drug therapy
CPT/HCPCS: 36415; 71046; 74176; 80053; 81003; 81015; 83690; 85025; Q9967

== ENCOUNTER 2019-04-22 11:01 | Outpatient (CLI) | payer MEDICARE, BC ==
--- NOTE | 2019-04-22 12:34 | CT ---
EXAM: CT Chest Abd Pelvis W Con PROVIDED CLINICAL HISTORY: Breast cancer COMPARISON: 08/26/2018 CT chest, abdomen and pelvis 01/22/2019 CT chest without 04/19/2019 CT abdomen and pelvis without FINDINGS: CHEST: The heart, pericardium and great vessels demonstrate an unchanged CT appearance. There is stable nohemy pheral scarring involving the anterior aspect of the right upper lobe. The lungs are free of significant opacity. There is no evidence for thoracic lymph node enlargement. No pleural fluid, pleu ral thickening or pneumothorax apparent. The airway appears patent and of normal caliber. ABDOMEN/PELVIS: There are innumerable enhancing masses throughout the liver, primarily involving the right hepatic l obe. There is a large dominant right hepatic lobe mass measuring at least 6.9 x 7.1 cm in greatest transverse dimensions. These are interval respect to the 08/26/2018 study. Comparison with the more r ecent priors is limited due to lack of IV contrast on the studies. The spleen, pancreas, kidneys and adrenal glands demonstrate an unremarkable CT appearance. There is no bowel dilatation, inflammatory fat stranding, or free fluid apparent. There are multiple enlarged lymph nodes present within the retroperitoneum and portacaval regions the largest of which measures about 2.4 cm in greatest transverse dimension. The osseous structures demonstrate no concerning lytic or blastic lesions. Multifocal atherosclerotic vascular calcification is seen. IMPRESSION: 1. Innumerable hepatic masses compatible with metastatic disease as above. 2. Portacaval and retroperitoneal lymph node enlargement, compatible with metastatic disease.
== END 2019-04-22 11:02 | disposition home or self-care (01) ==
LOC: CT 11:01
PROVIDERS: ATTEND Internal Medicine Hematology & Oncology
DX: C50.111 Malignant neoplasm of central portion of right female breast (principal); R16.0 Hepatomegaly, not elsewhere classified; R59.0 Localized enlarged lymph nodes
CPT/HCPCS: 71260; 74177

== ENCOUNTER 2019-06-20 12:37 | Outpatient (CLI) | payer MEDICARE, BC ==
--- NOTE | 2019-06-20 13:56 | MRI ---
MRI BRAIN WITH AND WITHOUT CONTRAST: INDICATION: Intermittent weakness. History of breast cancer with slurred speech. COMPARISON: Reference is made to prior head CT dated 05/03/2017. FINDINGS: The ventricular system is normal in size. No mass effect or midline shift. There is mild chronic is chemic disease within the cerebral white matter. No acute territorial infarction or evidence of intr acranial hemorrhage. There is diffuse abnormal pachymeningeal enhancement and numerous foci of signa l alteration and enhancement are present within the calvarium and skull base. There is scattered muc osal inflammatory thickening of the paranasal sinuses. IMPRESSION: 1. Diffuse pachymeningeal and skull base thickening and enhancement compatible with intracranial met astatic disease. 2. Numerous foci of signal alteration and enhancement throughout the calvarium bilaterally, and skul l base, consistent with osseous metastatic lesions. 3. There is no acute territorial infarction or intracranial mass effect. A telephone call was placed to the patient's physician, Dr. Celena Olguin, at the time of dictation, 1 325 hours. CODE CR
== END 2019-06-20 12:38 | disposition home or self-care (01) ==
LOC: MRI 12:37
PROVIDERS: ATTEND Internal Medicine Hematology & Oncology
DX: R53.1 Weakness (principal); C50.919 Malignant neoplasm of unspecified site of unspecified female breast; C22.9 Malignant neoplasm of liver, not specified as primary or secondary; D70.8 Other neutropenia; R47.81 Slurred speech; C79.31 Secondary malignant neoplasm of brain
CPT/HCPCS: 70553

== ENCOUNTER 2019-08-04 09:13 | Inpatient (IN) | payer MEDICARE, BC ==
[2019-08-04] MEDS ORDERED: Ondansetron PF 4 MG/2 ML Vial ONE (09:57)
[2019-08-04] MEDS ORDERED: Hydrocortisone Sod Succ/PF 100 mg/2 ml Vial ONE (10:02)
[2019-08-04] MEDS ORDERED: Famotidine/PF 20 mg/2ml Vial ONE (10:02)
[2019-08-04] MEDS ORDERED: diphenhydrAMINE 50 MG/ML VIAL ONE (10:02)
[2019-08-04 10:09] LABS: White Blood Cell (WBC) Count 1.7 thou/uL (4.8-10.8)
[2019-08-04 10:10] LABS: Hemoglobin 12.9 g/dL (12.0-16.0); Mean Corpuscular HGB CONC 33.5 g/dL (32.0-36.0); Mean Corpuscular Hemoglobin 34.4 pg (27.0-31.0); Mean Platelet Volume 8.7 fL (7.4-10.4); Platelet Count 130 thou/uL (130-400); RBC Distribution Width 16.7 % (11.5-14.5); Red Blood Cell (RBC) Count 3.74 mill/uL (4.20-5.40)
[2019-08-04 10:17] LABS: Anion Gap 11 mmol/L (10-20); BUN (Urea Nitrogen) 16 mg/dL (9.8-20.1); Carbon Dioxide 26 mmol/L (23-31); Chloride 100 mmol/L (98-107); Sodium 133 mmol/L (136-145)
[2019-08-04 10:18] LABS: ALT (SGPT) 114 U/L (8-55); AST (SGOT) 57 U/L (5-34); Albumin 2.5 g/dL (3.4-4.8); Alkaline Phosphatase 360 U/L (40-110); Bilirubin, Total 2.3 mg/dL (0.2-1.2); Calc. Creatinine Clearance 0 mL/min (70-130); Calcium 8.2 mg/dL (7.8-10.44); Estimated GFR-MDRD Greater than 90; Globulin 2.6 g/dL (2.4-3.5); Glucose 83 mg/dL (80-115); Protein, Total 5.1 g/dL (5.8-8.1)
[2019-08-04 10:39] LABS: Anisocytosis SLIGHT = 6-15 cells (100X) (0-5/hpf); Band 11 % (5-11); Lymphocytes 49 % (21-51); MDiff Complete? YES; Macrocytosis SLIGHT = 6-15 cells (100X) (0-5/hpf); Metamyelocyte 3 % (0-0); Monocytes 16 % (0-10); Myelocyte 1 % (0-0); Neutrophil 20 % (42-75); Platelet Morphology Comment Appears Adequate; Polychromasia SLIGHT = 2-3 cells (100X) (0-2/hpf)
[2019-08-04 11:14] LABS: Bilirubin Negative (Negative); Blood, Urine Negative (Negative); Clarity Turbid (Clear); Glucose, Urine (Dipstick) Normal (Negative); Leukocyte Negative Leu/uL (Negative); Nitrite Negative (Negative); Protein, Urine (Dipstick) 50 mg/dL (Neg-Trace); RBC/HPF 0-3 HPF (0-3); Squamous Epithelial 0-3 HPF (0-3)
[2019-08-04 11:19] LABS: Bacteria/HPF 1+ HPF (None Seen)
[2019-08-04] MEDS ORDERED: Iopamidol-370 76% 500 ML 1 ML ONE (11:22)
--- NOTE | 2019-08-04 11:49 | CT ---
CT ANGIOGRAM THORAX WITH IV CONTRAST AND 3-D RECONSTRUCTIONS CLINICAL INDICATION: Dyspnea. History of breast cancer with metastasis to brain and liver. Patient currently being treated with chemotherapy. COMPARISON: 09/17/2017. FINDINGS: Pulmonary arteries: No filling defects are seen in the central or segmental pulmonary arteries. More distal subsegmental pulmonary arteries are not well opacified. Aorta: Mild vascular calcifications are seen. The thoracic aorta is normal in caliber without evidenc e of an aortic dissection. Lungs: There is a small right pleural effusion with passive atelectasis. Dependent volume loss is pre sent on the left. There are several lobulated patchy parenchymal densities seen within in the right lower lobe and right upper lobe which could be related to multifocal pneumonia. However, follow-up to complete resolution is recommended to ensure there is no underlying neoplastic process. There are linear densities seen within the anterior aspect of the right upper lobe could be related to areas of mild scarring. Minimal atelectasis is present in the lingula. Left lung is clear allowing for expiratory phase of imaging. Mediastinum: Mildly prominent nonspecific subcarinal lymph node is seen. No enlarged lymph nodes are seen by CT size criteria. Thyroid gland: Within normal limits for phase of imaging. Osseous structures: Multilevel degenerative changes are seen in the thoracic spine. There are endplat e irregularities seen involving the mid and lower thoracic spine vertebral bodies not seen on prior exam which are thought to be related to prominent degenerative changes. However, there are irregular areas of sclerosis seen within the lower thoracic vertebral bodies at the levels of greater degenerative changes. These areas of sclerosis could be related to the prominent degenerative changes , but associated metastatic disease cannot be entirely excluded. Chest wall: A left subclavian Mediport catheter is again seen. Postsurgical changes right axillary re gion are again noted with multiple surgical clips identified. Postsurgical changes right breast are again seen. Upper abdomen: Multiple hypodense lesions are seen throughout each lobe of the liver suggesting metas tatic disease. Small amount of ascites is seen in the visualized upper abdomen. IMPRESSION: 1. Multifocal patchy parenchymal densities within the right upper lobe and right lower lobe which may related to multifocal pneumonia. However, follow-up to complete resolution is recommended to exclude neoplastic process. 2. Small right pleural effusion. 3. Interval progression in scattered degenerative changes in the thoracic spine with irregular areas of sclerosis seen in the lower thoracic spine which also may be attributable to degenerative-type changes, but osseous metastatic disease cannot be entirely excluded. 4. Multiple hypodense metastatic lesions seen throughout each lobe of the liver. 5. Small amount of ascites. 6. No CT findings to suggest a pulmonary embolus involving the central or segmental pulmonary arterie s.
--- NOTE | 2019-08-04 11:55 | CT ---
CT OF THE BRAIN WITHOUT CONTRAST: Date: 08/04/19 COMPARISON: MRI brain 06/20/19. HISTORY: Breast cancer with metastasis to brain and liver being treated with chemotherapy. Altered mental stat us. TECHNIQUE: Multiple contiguous axial images were obtained in a CT of the brain without contrast. FINDINGS: The brain is normal in morphology and attenuation without focal lesions or confluent areas of infarct ion. There is no evidence of hydrocephalus, intracranial hemorrhage, or extra-axial fluid collection. The calvarium and overlying soft tissues are unremarkable. The abnormality seen in the calvarium on M RI are not appreciated on CT. The visualized paranasal sinuses and mastoid air cells are well aerated . IMPRESSION: No evidence of acute intracranial abnormality. POS: TPC
--- NOTE | 2019-08-04 11:58 | CT ---
CT ABDOME AND PELVIS WITHOUT AND WITH CONTRAST: Date: 08/04/19 HISTORY: Breast cancer with metastatic disease to the liver and brain. Abdominal pain. Right leg numbness. COMPARISON: 04/22/19. TECHNIQUE: Multiple contiguous axial images were obtained in a CT of the abdomen and pelvis with contrast. Sagit kwadwo and coronal reformats were performed. FINDINGS: Diffuse scattered hypodensities in the liver are seen consistent with metastatic disease. When compar ed to the prior examination, these appear to have worsened. The patient is status post cholecystectom y. There is a small amount of fluid adjacent to the liver and a small amount of fluid in the pelvis. The kidneys, adrenal glands, spleen, and pancreas are unremarkable. The large and small bowel are unremarkable. The patient is status post hysterectomy. Small, subcentim eter retroperitoneal lymph nodes are seen in the upper retroperitoneum. No enlarged lymph nodes are s een in the abdomen or pelvis. A few subtle foci of abnormal density are seen within vertebral bodies consistent with osseous metast atic disease. There is a small right pleural effusion. There appears to be atelectasis versus scarrin g in the right lung base. The abdominal wall soft tissues are unremarkable. IMPRESSION: 1. Worsening of hepatic metastatic disease. 2. Small right pleural effusion. 3. Subtle abnormal appearance of the vertebral bodies likely represents osseous metastatic disease. POS: TPC
--- NOTE | 2019-08-04 11:59 | ULT ---
US Venous Doppler Bilat History: Pain Comparison: None. Findings: Bilateral lower extremity venous Doppler was performed. The common femoral, femoral, proxim al portions greater saphenous and deep femoral veins as well as the popliteal posterior tibial veins were interrogated. Left posterior tibial vein is noncompressible. Remainder of the veins have normal flow, augmentation, and compression. Mild to moderate left lower extremity edema. Impression: Left posterior tibial vein deep venous thrombosis. Code CR Dr. Hair at 11:57 AM.
[2019-08-04] MEDS ORDERED: cefTRIAXone\\ROCEPHIN 2 GM VIAL ONE (12:54)
[2019-08-04] MEDS ORDERED: Sodium Chloride 0.9% 200 ML ONE (12:54)
[2019-08-04] MEDS ORDERED: Azithromycin 500 MG VIAL ONE (12:54)
[2019-08-04] MEDS ORDERED: Enoxaparin Sodium 80 MG/0.8 ML SYRINGE ONE (12:54)
[2019-08-04] MEDS ORDERED: Enoxaparin Sodium 60 MG/0.6 ML SYRINGE ONE (12:54)
[2019-08-04 13:52] LABS: Troponin I Less than 0.010 ng/mL (< 0.028)
[2019-08-04] MEDS ORDERED: Acetaminophen 650 MG Suppository PR PRN (14:33)
[2019-08-04] MEDS ORDERED: Ondansetron ODT 4 MG TAB PO PRN (14:33)
[2019-08-04] MEDS ORDERED: Ondansetron PF 4 MG/2 ML Vial IVP PRN (14:33)
[2019-08-04] MEDS ORDERED: Acetaminophen 325 MG TAB PO PRN (14:33)
[2019-08-04 15:55] VITALS: BMI 28.3
[2019-08-04] MEDS ORDERED: oxyCODONE 5 MG TAB PO PRN (16:16)
--- NOTE | 2019-08-04 16:34 | HP ---
TIME OF ADMISSION: 1300 hours. CHIEF COMPLAINT: Generalized weakness. HISTORY OF PRESENT ILLNESS: Mrs. Israel is a 68-year-old woman, who presents to the emergency department due to concerns over lower extremity weakness. The patient is walking well on her own with the help of her walker the day before yesterday. She has developed progressive weakness since then and today when her attempted to get her out of bed, she buckled in the knees and complained of weakness in her legs. Per EMS, she had some right lower extremity numbness; however, the patient denies this at present. She denies having any back pain. Reports having issues with generalized weakness, chills and has had a cough for the last couple of days. Denies any chest pain or shortness of breath. She reports feeling worn out. According to the , when she had buckling of her knees, he lowered her to the floor, but the patient did not experience any trauma or injury. Apparently, she has been having some incontinence of urine and stool for the last 2 weeks intermittently. When asked about any saddle anesthesia or paresthesias, she states that sensation has been normal, what she complains of is weakness in her legs and in her arms. She is known to have metastatic breast cancer to the liver and brain. She completed radiation therapy to the brain and has one treatment left for chemo tomorrow. The patient is under Dr. Olguin's care. ED COURSE: In the emergency department, she underwent an EKG that showed sinus tachycardia with a heart rate of 105. She had normal ST segments and normal T-waves. She had a venous Doppler done showing a DVT in the right lower extremity. LABORATORY STUDIES: Done showed white count of 1.7, hemoglobin of 12.9, hematocrit 38.3, platelets of 130, and neutrophil count of 20. Her sodium was 133, BUN 16, creatinine 0.58, GFR greater than 90, potassium 4. LFTs elevated. She had a total bilirubin of 2.3, AST of 57, ALT of 114, alkaline phosphatase of 360. Troponin was negative x2. Albumin 2.5. Urinalysis was done showing turbid urine with 50 of protein, trace ketones, two urobilinogen, and 11 to 20 white blood cells with 1+ bacteria. She had imaging of the brain, which demonstrated no evidence of acute intracranial abnormality. She had a CT angiogram of the chest showing multifocal patchy parenchymal densities within the right upper lobe and right lower lobe, felt to be related to multifocal pneumonia; however, neoplastic process could be a possibility as well. She had a small right pleural effusion. There was interval progression and scattered degenerative changes in the thoracic spine with areas of sclerosis again could be degenerative changes or osseous metastatic disease. There were multiple hypodense metastatic lesions seen throughout each lobe of the liver and a small amount of ascites. No evidence of PE was present. She had CT imaging of the abdomen and pelvis, which showed worsening of hepatic metastatic disease and a small right pleural effusion. Subtle abnormal appearance of the vertebral bodies felt to represent osseous metastatic disease. Per Dr. Walton, she discussed with Dr. Olguin, who advised to hold off on giving all of these results until she has had the opportunity to review the images herself and compare to the most recent restaging studies done. Treatment was started for possible pneumonia with azithromycin and Rocephin and the patient has been placed on Lovenox for the left lower extremity DVT. Patient is being admitted to the hospital for further workup and management. PAST MEDICAL HISTORY: 1. Metastatic breast cancer. 2. Hypothyroidism. 3. Hyperlipidemia. 4. Depression. PAST SURGICAL HISTORY: 1. Right lumpectomy, she has a right breast lumpectomy. 2. Appendectomy. 3. Cholecystectomy. 4. x1. 5. Hysterectomy. 6. Tonsillectomy. SOCIAL HISTORY: The patient lives with her family. Denies any tobacco use, alcohol consumption, or illicit drug use. ALLERGIES: ADHESIVES, CODEINE, IODINE CONTRAST. CURRENT MEDICATIONS: 1. Zofran. 2. Gabapentin. 3. Memantine. 4. Compazine. 5. Duloxetine. 6. Dexamethasone. PHYSICAL EXAMINATION: GENERAL: The patient appears generally fatigued and deconditioned. She is in no acute distress, resting comfortably on the stretcher. VITAL SIGNS: Temperature 98.8, pulse 76, respirations 16, blood pressure 125/67 , O2 saturation 97% on room air. HEENT: Normocephalic and atraumatic. Pupils are equal, round, and reactive to light. Sclerae icterus. Oropharynx is clear. NECK: Supple. LUNGS: Clear to auscultation bilaterally without any wheezes, rales, rhonchi. CARDIAC: Regular rate and rhythm. ABDOMEN: Mild discomfort with palpation, which is chronic for her as she did have some suprapubic discomfort with palpation. EXTREMITIES: Edema present to the right upper extremity. A two pitting, chronic bilateral lower extremities with swelling, but no edema. NEUROLOGIC: Alert and oriented x3. Sensation in upper and lower extremities present; however, a generalized weakness. No particular difference between the right and left side of the upper or lower extremities. Speech normal. SKIN: Warm, pale and dry. INVESTIGATIONS: As mentioned above in HPI. IMPRESSION AND PLAN: Ms. Israel is a 68-year-old woman, presenting with generalized weakness and difficulty walking for the last 2 days, worse today, who is being admitted for management of the following; 1. Possible multifocal pneumonia. We will continue IV antibiotics. She was given azithromycin and Rocephin in the ED. She has also been started on methylprednisolone. 2. Left lower extremity deep venous thrombosis. The patient is given with Lovenox. We will continue anticoagulation. No evidence of pulmonary embolism on the CT angiogram. 3. Metastatic breast cancer, possibly progressing. Dr. Olguin will be seeing the patient to discuss imaging results and further recommendations based on findings. No further imaging to be obtained at this present time. There is a question about vertebral involvement and vague complaints regarding lower extremity weakness, which is likely generalized weakness; however, spinal mets could be a contributing factor. Further imaging such as MRI of the thoracic lumbar spine if deemed necessary per Dr. Olguin's assessment. No neuro deficits at present, though she does have generalized weakness. We will place consultation with PT, OT. 4. Gastrointestinal prophylaxis with famotidine. 5. Code status. The patient and family members have not yet filled up paperwork and would like to discuss with someone. Advance directives, however, it seems patient is leaning towards being a DNAR. Consult will be placed to Palliative Care. The patient's case discussed with attending, who agrees with plan of care as described above. Job ID: [id number] MTDD
[2019-08-04 16:46] LABS: INR-International Normal Ratio 1.2
[2019-08-04 16:47] LABS: PTT 44.9 SEC (22.9-36.1)
[2019-08-04 16:54] LABS: Lactic Acid 1.6 mmol/L (0.5-2.2)
--- NOTE | 2019-08-04 17:29 | CON ---
DATE OF CONSULTATION: REASON FOR CONSULT: Breast cancer. HISTORY OF PRESENT ILLNESS: Ms. Israel is a pleasant 68-year-old female with metastatic triple-negative breast cancer. She has liver and leptomeningeal metastases. She recently completed whole-brain radiation and was started on chemoimmunotherapy with Abraxane and Tecentriq. She has received 3 cycles. She has struggled with weakness throughout this last treatment. Over the past week, she had several falls. This morning, her attempted to get her out of the bed and noticed that she was extremely weak. They called our office and we referred them to the emergency room for evaluation. She underwent a brain CT which showed no acute findings. She had an abdominal and pelvis CT, which showed diffuse scattered hypodensities in the liver that appeared worsened from prior exam dated 04/22/2019. She had a chest and thorax angiogram which was negative for pulmonary emboli. She had a venogram which showed left posterior tibial DVT. She was started on Lovenox and admitted for weakness. She received a liter of fluid in the emergency room. She complains of weakness. She states she has not been able to void since arrival to the ER with complaints of abdominal distention. PAST MEDICAL HISTORY: 1. 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 2. Right upper extremity lymphedema. 3. Hypothyroidism. 4. Depression. 5. Osteoarthritis. PAST SURGICAL HISTORY: Right breast lumpectomy and sentinel node biopsy. ALLERGIES: TO CODEINE AND IODINE CONTRAST. HOME MEDICATIONS: 1. Compazine. 2. Cymbalta. 3. Dexamethasone. 4. Gabapentin. 5. Zofran. 6. Oxycodone. 7. Phenergan. 8. D3. 9. Zyrtec. FAMILY HISTORY: Father had pancreatic cancer. SOCIAL HISTORY: , has one child. Lives with her spouse. No alcohol, tobacco, or illicit drug use. REVIEW OF SYSTEMS: Negative except for noted in HPI. PHYSICAL EXAMINATION: VITAL SIGNS: Temperature is 98.3, pulse is 97, respiratory rate 20, blood pressure is 146/78. She is 96% on room air. GENERAL: This is a chronically ill-appearing female, in no acute distress. HEENT: Normocephalic and atraumatic. Pupils are equal and reactive to light. CV: Regular rate and rhythm. LUNGS: Clear anteriorly. ABDOMEN: Soft, mildly distended and obese. Bowel sounds are positive. EXTREMITIES: She has right upper extremity lymphedema and right lower extremity edema. SKIN: There is no rash. HEMATOLOGICAL: There are no petechiae or purpura. NEUROLOGICAL: Nonfocal. PSYCH: She is alert, oriented, and appropriate. PERTINENT LABS AND X-RAYS: Current WBCs 1.7, hemoglobin 12.9, hematocrit 38.6, platelet count is 130,000. She has 20% neutrophils, 11% bands, 49% lymphocytes, 16% monocytes. Sodium is 133, potassium 4.0, chloride 100, CO2 is 26, BUN is 16, creatinine 0.58, calcium 8.2, bilirubin 2.3, AST is 57, ALT is 114, alkaline phosphatase is 360. Troponin is negative. Serum total protein is 5.1, albumin 2.5, globulin 2.6. Urine shows 1+ bacteria, leukocyte esterase, and nitrite negative. Radiology per HPI. ASSESSMENT: 1. Metastatic triple-negative breast cancer, on Abraxane and Tecentriq. 2. New left lower extremity deep venous thrombosis. 3. Generalized weakness. 4. Progressive worsening of LFTs. DISCUSSION: The patient has been given therapeutic Lovenox for her DVT. We discussed that her bilirubin initially improved with treatment, but has now significantly worsened. It is unclear if this is due to progression of disease or a side effect from immunotherapy. Her scan in the ER was compared to the scan in April, she had a delay in treatment for several weeks, after that scan in April, progression may have occurred at that time. Regardless, we have to hold immunotherapy at this time secondary to her LFTs. The patient states she is tired and does not feel that she wants to continue forthwith treatment. She requests to be a DNR. She complains of distended bladder and inability to urinate. Her bladder scan shows residual of 600. We will insert a Sharp catheter. Case has been discussed in detail with Dr. Olguin who will see the patient tomorrow to discuss hospice versus treatment further. Palliative Care has been consulted. Thank you for the consult. Job ID: [id number]
[2019-08-04] MEDS: methylPREDNISolone Sod Succ 40 MG VIAL IVP SCH ×2 (18:13→23:07)
[2019-08-04 18:50] LABS: Troponin I Less than 0.010 ng/mL (< 0.028)
[2019-08-04] MEDS ORDERED: diphenhydrAMINE 50 MG/ML VIAL IVP SCH (19:30)
--- NOTE | 2019-08-04 19:43 | CON ---
DATE OF CONSULTATION: 08/04/2019 REASON FOR CONSULTATION: Abnormal CT of the chest. HISTORY OF PRESENT ILLNESS: The patient is a 68-year-old female with known metastatic breast cancer to her liver and brain. She was brought to the ER by her family today because of extreme lower extremity weakness that has been progressive over the last 3 days. She has been found to have a DVT in her lower extremity. She denies any cough, increasing shortness of breath, or productive sputum. She had a CT of the chest done, which showed nodular changes in the right mid lung, which were not there on CT in January. PAST MEDICAL HISTORY: 1. Metastatic breast cancer. 2. Hypothyroidism. 3. Hyperlipidemia. 4. section. 5. Cholecystectomy. 6. Appendectomy. 7. Right breast lumpectomy. 8. Hysterectomy. 9. Tonsillectomy. 10. Hyperlipidemia. 11. Depression. 12. Hypothyroidism. SOCIAL HISTORY: Nonsmoker. Does not consume alcohol. 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 ALLERGIES: ADHESIVE TAPE, CODEINE, AND IODINE CONTRAST. MEDICATIONS: Prior to admission: 1. Zofran. 2. Gabapentin. 3. Memantine. 4. Compazine. 5. Duloxetine. 6. Dexamethasone. PHYSICAL EXAMINATION: VITAL SIGNS: Temperature 98.3, pulse 97, respirations 20, O2 sats 96% on room air, and blood pressure 146/78. GENERAL: She is a chronically ill-appearing woman, in no acute distress. HEENT: She has alopecia. NECK: No adenopathy or JVD. LUNGS: Clear to auscultation. She has a MediPort in right chest. CARDIOVASCULAR: S1 and S2, regular. ABDOMEN: Soft, nontender, and nondistended. EXTREMITIES: She has a right arm lymphedema. She has swelling of both lower extremities. LABORATORY DATA: White blood cell count 1.7, hematocrit 38.3, and platelet count 130. Sodium 133, potassium 4, chloride 100, CO2 of 26, BUN 16, creatinine 0.5, and glucose 83. I reviewed her CT scan in detail, also reviewed her venogram showing a left posterior tibial venous thrombosis. CT of the chest demonstrates multifocal round densities in the right mid lung region with small right pleural effusion. There are metastatic changes in the liver. The apical densities on the right side are not as apparent on CT scan. Brain CT was clear. Abdominal CT showed the worsening of the hepatic metastatic disease in subtle vertebral body abnormalities suspicious for metastatic osseous disease. ASSESSMENT: I think the parenchymal findings in the lungs are indicative of metastatic disease and probably not indicative of pneumonia. Of course, the patient is leukopenic and could have underlying infection, so coverage with antibiotics would be perfectly acceptable. RECOMMENDATIONS: Currently, Oncology will be talking to the patient about entering hospice care. No workup is planned for the lung nodules. I do not have any issues with a trial of antibiotics, but I doubt that will do much. Thank you for the referral. Job ID: [id number]
[2019-08-04] MEDS: Famotidine/PF 20 mg/2ml Vial SLOW IVP SCH (20:07)
[2019-08-04] MEDS: Enoxaparin Sodium 80 MG/0.8 ML SYRINGE SC SCH (20:08)
[2019-08-04 21:47] LABS: Troponin I Less than 0.010 ng/mL (< 0.028)
[2019-08-05] MEDS: methylPREDNISolone Sod Succ 40 MG VIAL IVP SCH (05:07)
[2019-08-05 05:59] LABS: ALT (SGPT) 81 U/L (8-55); AST (SGOT) 36 U/L (5-34); Albumin 2.1 g/dL (3.4-4.8); Alkaline Phosphatase 260 U/L (40-110); Anion Gap 11 mmol/L (10-20); BUN (Urea Nitrogen) 12 mg/dL (9.8-20.1); Bilirubin, Total 0.8 mg/dL (0.2-1.2); Calc. Creatinine Clearance 110 mL/min (70-130); Calcium 7.8 mg/dL (7.8-10.44); Carbon Dioxide 23 mmol/L (23-31); Chloride 102 mmol/L (98-107); Estimated GFR-MDRD Greater than 90; Globulin 2.4 g/dL (2.4-3.5); Glucose 109 mg/dL (80-115); Potassium 3.4 mmol/L (3.5-5.1); Protein, Total 4.5 g/dL (6.0-8.3); Sodium 133 mmol/L (136-145)
[2019-08-05 06:40] LABS: Band 4 % (5-11); Lymphocytes 28 % (21-51); MDiff Complete? YES; Mean Corpuscular HGB CONC 33.7 g/dL (32.0-36.0); Mean Corpuscular Hemoglobin 34.6 pg (27.0-31.0); Mean Platelet Volume 8.4 fL (7.4-10.4); Monocytes 18 % (0-10); Neutrophil 50 % (42-75); Platelet Count 86 thou/uL (130-400); Platelet Morphology Comment Appears Decreased; RBC Distribution Width 16.9 % (11.5-14.5); Red Blood Cell (RBC) Count 2.89 mill/uL (4.20-5.40)
--- NOTE | 2019-08-05 08:46 | PDOC.MOPN ---
Interval History: L leg is still swollen, she is not hurting. she does not think she is going to get better - Vital Signs Vital Signs: Vital Signs (12 hours) Temp Pulse Resp BP Pulse Ox 08/05/19 07:16 98.2 F 103 H 17 105/65 96 08/05/19 06:52 71 16 96 08/05/19 05:31 98.1 F 88 19 101/64 96 08/04/19 23:12 97.8 F 82 18 106/67 99 08/04/19 23:03 87 18 94 L 08/04/19 20:42 98.1 F 96 19 106/68 95 Weight Weight 144 lb 15.968 oz - Physical Exam General: Alert, Other (chronically ill appearing) Lungs: Clear to auscultation Cardiovascular: Regular rate Abdomen: Normal bowel sounds Extremities: No clubbing Skin: No rashes - Labs Result Diagrams: 08/05/19 05:15 08/05/19 05:15 Lab results: Laboratory Results - last 24 hr 08/05/19 05:15: WBC 1.0 L, RBC 2.89 L, Hgb 10.0 L, Hct 29.7 L, MCV 103.0 H, MCH 34.6 H, MCHC 33.7, RDW 16.9 H, Plt Count 86 L, MPV 8.4, Neutrophils % (Manual) 50, Band Neuts % (Manual) 4 L, Lymphocytes % (Manual) 28, Monocytes % (Manual) 18 H, Plt Morphology Comment Appears Decreased L 08/05/19 05:15: Sodium 133 L, Potassium 3.4 L, Chloride 102, Carbon Dioxide 23, Anion Gap 11, BUN 12, Creatinine 0.51 L, Estimated GFR (MDRD) Greater than 90, Glucose 109, Calcium 7.8, Total Bilirubin 0.8, AST 36 H, ALT 81 H, Alkaline Phosphatase 260 H, Serum Total Protein 4.5 L, Albumin 2.1 L, Globulin 2.4, Albumin/Globulin Ratio 0.9 L 08/04/19 21:06: Troponin I Less than 0.010 08/04/19 18:14: Troponin I Less than 0.010 08/04/19 16:14: PT 15.0 H, INR 1.2, APTT 44.9 H 08/04/19 16:14: Lactic Acid 1.6 08/04/19 13:16: Troponin I Less than 0.010 08/04/19 10:49: Urine Color Yellow, Urine Clarity Turbid A, Urine pH 6.0, Ur Specific [place] 1.027, Urine Protein 50 A, Urine Glucose (UA) Normal, Urine Ketones Trace A, Urine Blood Negative, Urine Nitrite Negative, Urine Bilirubin Negative, Urine Urobilinogen 2.0 A, Ur Leukocyte Esterase Negative, Urine RBC 0- 3, Urine WBC 11-20 A, Ur Squamous Epith Cells 0-3, Urine Bacteria 1+ A 08/04/19 09:49: Sodium 133 L, Potassium 4.0, Chloride 100, Carbon Dioxide 26, Anion Gap 11, BUN 16, Creatinine 0.58 L, Estimated GFR (MDRD) Greater than 90, Glucose 83, Calcium 8.2, Total Bilirubin 2.3 H, AST 57 H, ALT 114 H, Alkaline Phosphatase 360 H, Serum Total Protein 5.1 L, Albumin 2.5 L, Globulin 2.6, Albumin/Globulin Ratio 1.0 L 08/04/19 09:49: Troponin I Less than 0.010 08/04/19 09:49: WBC 1.7 L, RBC 3.74 L, Hgb 12.9, Hct 38.3, MCV 103.0 H, MCH 34.4 H, MCHC 33.5, RDW 16.7 H, Plt Count 130, MPV 8.7, Neutrophils % (Manual) 20 L, Band Neuts % (Manual) 11, Lymphocytes % (Manual) 49, Monocytes % (Manual) 16 H, Metamyelocytes % (Man) 3 H, Myelocytes % 1 H, Neutrophils # Not Reportable , Lymphocytes # Not Reportable, Plt Morphology Comment Appears Adequate, Polychromasia SLIGHT = 2-3 cells, Anisocytosis SLIGHT = 6-15 cells, Macrocytosis SLIGHT = 6-15 cells A/P - Problem (1) Metastatic breast cancer Current Visit: Yes Code(s): C50.919 - MALIGNANT NEOPLASM OF UNSP SITE OF UNSPECIFIED FEMALE BREAST Status: Acute (2) DVT (deep venous thrombosis) Current Visit: Yes Code(s): I82.409 - ACUTE EMBOLISM AND THOMBOS UNSP DEEP VN UNSP LOWER EXTREMITY Status: Acute - Plan Plan: 1. long discussion, she is DNAR 2. consult Hospice 3. home when family is ready 4. cont anticoagulation
[2019-08-05] MEDS ORDERED: FLU VACC TS2019-20(65YR UP)/PF 180 MCG/0.5 ML SYRINGE IM ONE (09:00)
[2019-08-05] MEDS ORDERED: Loratadine 10 MG TAB PO PRN (11:00)
[2019-08-05] MEDS: Enoxaparin Sodium 80 MG/0.8 ML SYRINGE SC SCH ×2 (11:10→20:52)
[2019-08-05] MEDS: Famotidine/PF 20 mg/2ml Vial SLOW IVP SCH ×2 (11:10→20:48)
[2019-08-05] MEDS ORDERED: cefTRIAXone\\ROCEPHIN 2 GM in Sodium Chloride 0.9% 100 ML IVPB SCH (13:00)
[2019-08-05] MEDS ORDERED: Azithromycin 500 MG in Sodium Chloride 0.9% 250 ML 250 ML IVPB SCH (14:00)
[2019-08-05] MEDS: Gabapentin 300 MG CAP PO SCH ×2 (15:16→20:48)
[2019-08-05] MEDS ORDERED: diphenhydrAMINE 25 MG CAP PO PRN (19:01)
--- NOTE | 2019-08-06 07:59 | PDOC.HOSPP ---
- Subjective Encounter Date: 08/05/19 Encounter Time: 10:15 Subjective: pt up in bed does not have any complains. spoke with family and pt and she wants no further tx. - Objective Vital Signs & Weight: Vital Signs (12 hours) Pulse Ox 08/05/19 20:05 95 Weight Admit Weight 144 lb Weight 144 lb 15.968 oz I&O: 08/05/19 08/06/19 08/07/19 06:59 06:59 06:59 Intake Total 250 200 Output Total 800 250 Balance -550 -50 Result Diagrams: 08/05/19 05:15 08/05/19 05:15 Hospitalist ROS - Review of Systems Cardiovascular: denies: chest pain, palpitations, orthopnea, paroxysmal noc. dyspnea, edema, light headedness, other Gastrointestinal: denies: nausea, vomiting, abdominal pain, diarrhea, constipation, melena, hematochezia, other - Medication Medications: Active Medications Generic Name Dose Route Start Last Admin Trade Name Freq PRN Reason Stop Dose Admin Enoxaparin Sodium 70 mg 08/04/19 21:00 08/05/19 20:52 Lovenox SC Not Given 0900,2100 [facility] Famotidine 20 mg 08/04/19 21:00 08/05/19 20:48 Pepcid SLOW IVP 20 mg Q12HR ISAURA Administration Gabapentin 300 mg 08/05/19 15:00 08/05/19 20:48 Neurontin PO 300 mg TID ISAURA Administration - Exam Neck: negative: supple, symmetric, no JVD, no thyromegaly, no lymphadenopathy, no carotid bruit, JVD Heart: negative: RRR, no murmur, no gallops, no rubs, normal peripheral pulses, irregular, diminshed peripheral pulses, murmur present, II/IV, III/IV Respiratory: negative: CTAB, no wheezes, no rales, no ronchi, normal chest expansion, no tachypnea, normal percussion, rales, rhonchi, tachypneic, wheezes Hosp A/P (1) Generalized weakness Code(s): R53.1 - WEAKNESS Status: Acute (2) DVT (deep venous thrombosis) Code(s): I82.409 - ACUTE EMBOLISM AND THOMBOS UNSP DEEP VN UNSP LOWER EXTREMITY Status: Acute (3) Metastatic breast cancer Code(s): C50.919 - MALIGNANT NEOPLASM OF UNSP SITE OF UNSPECIFIED FEMALE BREAST Status: Acute - Plan will stop neb and steroids. pt does not want them. i will also stop abx. her platelets are low will give her lovenox today and check cbc in am. I explained to her and her family about lovonox and the risk of clot or bleeding. she understand but does not feel the need to take it if she goes to hospice.
[2019-08-06] MEDS: Gabapentin 300 MG CAP PO SCH ×3 (08:33→21:17)
[2019-08-06] MEDS: Famotidine/PF 20 mg/2ml Vial SLOW IVP SCH ×2 (08:37→21:17)
[2019-08-06 12:41] LABS: Anisocytosis SLIGHT = 6-15 cells (100X) (0-5/hpf); Hemoglobin 11.3 g/dL (12.0-16.0); Lymphocytes 24 % (21-51); MDiff Complete? YES; Macrocytosis SLIGHT = 6-15 cells (100X) (0-5/hpf); Mean Corpuscular HGB CONC 33.4 g/dL (32.0-36.0); Mean Corpuscular Hemoglobin 34.2 pg (27.0-31.0); Mean Platelet Volume 7.9 fL (7.4-10.4); Metamyelocyte 6 % (0-0); Monocytes 19 % (0-10); Myelocyte 10 % (0-0); Neutrophil 41 % (42-75); Nucleated RBC 1 % (0); Platelet Count 137 thou/uL (130-400); RBC Distribution Width 16.8 % (11.5-14.5)
--- NOTE | 2019-08-06 12:50 | PDOC.HOSPP ---
- Subjective Encounter Date: 08/06/19 Encounter Time: 10:00 Subjective: pt up in bed no complains - Objective Vital Signs & Weight: Vital Signs (12 hours) Temp Pulse Resp BP Pulse Ox 08/06/19 08:19 97.9 F 80 18 121/78 94 L 08/06/19 08:00 94 L Weight Admit Weight 144 lb Weight 144 lb 15.968 oz I&O: 08/05/19 08/06/19 08/07/19 06:59 06:59 06:59 Intake Total 250 200 120 Output Total 800 250 Balance -550 -50 120 Result Diagrams: 08/06/19 11:38 08/05/19 05:15 Hospitalist ROS - Review of Systems Cardiovascular: denies: chest pain, palpitations, orthopnea, paroxysmal noc. dyspnea, edema, light headedness, other Gastrointestinal: denies: nausea, vomiting, abdominal pain, diarrhea, constipation, melena, hematochezia, other Genitourinary: denies: dysuria, frequency, incontinence, hematuria, retention, other - Medication Medications: Active Medications Generic Name Dose Route Start Last Admin Trade Name Freq PRN Reason Stop Dose Admin Enoxaparin Sodium 70 mg 08/04/19 21:00 08/05/19 20:52 Lovenox SC Not Given 0900,2100 [facility] Famotidine 20 mg 08/04/19 21:00 08/06/19 08:37 Pepcid SLOW IVP Not Given Q12HR ISAURA Gabapentin 300 mg 08/05/19 15:00 08/06/19 08:33 Neurontin PO 300 mg TID ISAURA Administration - Exam Heart: negative: RRR, no murmur, no gallops, no rubs, normal peripheral pulses, irregular, diminshed peripheral pulses, murmur present, II/IV, III/IV Respiratory: negative: CTAB, no wheezes, no rales, no ronchi, normal chest expansion, no tachypnea, normal percussion, rales, rhonchi, tachypneic, wheezes Gastrointestinal: negative: soft, non-tender, non-distended, normal bowel sounds , no palpable masses, no hepatomegaly, no splenomegaly, no bruit, no guarding, no rigidity, tender to palpation, distended, diminished bowl sounds, voluntary guarding Hosp A/P (1) Generalized weakness Code(s): R53.1 - WEAKNESS Status: Acute (2) DVT (deep venous thrombosis) Code(s): I82.409 - ACUTE EMBOLISM AND THOMBOS UNSP DEEP VN UNSP LOWER EXTREMITY Status: Acute (3) Metastatic breast cancer Code(s): C50.919 - MALIGNANT NEOPLASM OF UNSP SITE OF UNSPECIFIED FEMALE BREAST Status: Acute - Plan will stop neb and steroids. pt does not want them. i will also stop abx. her platelets are low will give her lovenox today and check cbc in am. I explained to her and her family about lovonox and the risk of clot or bleeding. she understand but does not feel the need to take it if she goes to hospice. 08/06 pt has no pain and does not have much of an appetite. will continue home meds. Her platelets are stable will continue lovenox.
[2019-08-06] MEDS: Enoxaparin Sodium 80 MG/0.8 ML SYRINGE SC SCH ×2 (12:53→20:16)
[2019-08-06] MEDS ORDERED: Famotidine 20 MG TAB PO SCH (21:00)
[2019-08-06] MEDS: Melatonin 3 MG TAB PO PRN (21:17)
[2019-08-07 06:35] LABS: Calc. Creatinine Clearance 114 mL/min (70-130); Estimated GFR-MDRD Greater than 90
[2019-08-07 06:50] LABS: Hemoglobin 10.3 g/dL (12.0-16.0); Platelet Count 114 thou/uL (130-400)
[2019-08-07] MEDS: Gabapentin 300 MG CAP PO SCH ×3 (08:43→21:15)
[2019-08-07] MEDS: Famotidine/PF 20 mg/2ml Vial SLOW IVP SCH ×2 (08:43→21:14)
[2019-08-07] MEDS: Enoxaparin Sodium 80 MG/0.8 ML SYRINGE SC SCH ×2 (08:44→21:31)
--- NOTE | 2019-08-07 12:48 | PDOC.HOSPP ---
- Subjective Encounter Date: 08/07/19 Encounter Time: 11:15 Subjective: pt up in bed no complains - Objective Vital Signs & Weight: Vital Signs (12 hours) Temp Pulse Resp BP Pulse Ox 08/07/19 08:00 94 L 08/07/19 07:42 98.1 F 75 18 112/73 94 L Weight Admit Weight 144 lb Weight 144 lb 15.968 oz I&O: 08/06/19 08/07/19 08/08/19 06:59 06:59 06:59 Intake Total 200 760 Output Total 250 575 Balance -50 185 Result Diagrams: 08/07/19 06:00 08/07/19 06:00 Hospitalist ROS - Review of Systems Cardiovascular: denies: chest pain, palpitations, orthopnea, paroxysmal noc. dyspnea, edema, light headedness, other Gastrointestinal: denies: nausea, vomiting, abdominal pain, diarrhea, constipation, melena, hematochezia, other Genitourinary: denies: dysuria, frequency, incontinence, hematuria, retention, other - Medication Medications: Active Medications Generic Name Dose Route Start Last Admin Trade Name Freq PRN Reason Stop Dose Admin Enoxaparin Sodium 70 mg 08/04/19 21:00 08/07/19 08:44 Lovenox SC 70 mg 0900,2100 [facility] Administration Famotidine 20 mg 08/06/19 21:00 08/07/19 08:43 Pepcid SLOW IVP 20 mg BID ISAURA Administration Gabapentin 300 mg 08/05/19 15:00 08/07/19 08:43 Neurontin PO 300 mg TID ISAURA Administration Melatonin 6 mg 08/06/19 20:32 08/06/19 21:17 Melatonin PO 6 mg HS PRN Administration Insomnia - Exam Neck: negative: supple, symmetric, no JVD, no thyromegaly, no lymphadenopathy, no carotid bruit, JVD Heart: negative: RRR, no murmur, no gallops, no rubs, normal peripheral pulses, irregular, diminshed peripheral pulses, murmur present, II/IV, III/IV Respiratory: negative: CTAB, no wheezes, no rales, no ronchi, normal chest expansion, no tachypnea, normal percussion, rales, rhonchi, tachypneic, wheezes Hosp A/P (1) Generalized weakness Code(s): R53.1 - WEAKNESS Status: Acute (2) DVT (deep venous thrombosis) Code(s): I82.409 - ACUTE EMBOLISM AND THOMBOS UNSP DEEP VN UNSP LOWER EXTREMITY Status: Acute (3) Metastatic breast cancer Code(s): C50.919 - MALIGNANT NEOPLASM OF UNSP SITE OF UNSPECIFIED FEMALE BREAST Status: Acute - Plan will stop neb and steroids. pt does not want them. i will also stop abx. her platelets are low will give her lovenox today and check cbc in am. I explained to her and her family about lovonox and the risk of clot or bleeding. she understand but does not feel the need to take it if she goes to hospice. 08/06 pt has no pain and does not have much of an appetite. will continue home meds. Her platelets are stable will continue lovenox. 08/07 will continue lovenox for now, monitor platelets. Hospice needs to arrange equipment for her to go home. pt likes might shakes vanilla flavor will order.
[2019-08-07] MEDS: Melatonin 3 MG TAB PO PRN (21:15)
[2019-08-08] MEDS: Gabapentin 300 MG CAP PO SCH ×3 (07:57→20:23)
[2019-08-08] MEDS: Famotidine/PF 20 mg/2ml Vial SLOW IVP SCH ×2 (07:57→20:23)
[2019-08-08] MEDS: Enoxaparin Sodium 80 MG/0.8 ML SYRINGE SC SCH ×2 (07:58→20:23)
[2019-08-08] MEDS ORDERED: Zolpidem Tartrate 5 MG TAB PO PRN (11:26)
--- NOTE | 2019-08-08 15:13 | PDOC.HOSPP ---
- Subjective Encounter Date: 08/08/19 Encounter Time: 15:11 Subjective: Expresses no complaint.. - Objective Vital Signs & Weight: Vital Signs (12 hours) Temp Pulse Resp BP Pulse Ox 08/08/19 08:00 97 08/08/19 07:25 97.7 F 90 18 105/72 97 Weight Admit Weight 144 lb Weight 144 lb 15.968 oz I&O: 08/07/19 08/08/19 08/09/19 06:59 06:59 06:59 Intake Total 760 250 480 Output Total 575 350 Balance 185 -100 480 Result Diagrams: 08/07/19 06:00 08/07/19 06:00 Hospitalist ROS - Medication Medications: Active Medications Generic Name Dose Route Start Last Admin Trade Name Freq PRN Reason Stop Dose Admin Enoxaparin Sodium 70 mg 08/04/19 21:00 08/08/19 07:58 Lovenox SC 70 mg 0900,2100 [facility] Administration Famotidine 20 mg 08/06/19 21:00 08/08/19 07:57 Pepcid SLOW IVP 20 mg BID ISAURA Administration Gabapentin 300 mg 08/05/19 15:00 08/08/19 14:40 Neurontin PO 300 mg TID ISAURA Administration Melatonin 6 mg 08/06/19 20:32 08/07/19 21:15 Melatonin PO 6 mg HS PRN Administration Insomnia Sodium Chloride 10 ml 08/04/19 14:33 08/08/19 07:58 Flush - Normal Saline IVF 10 ml Q12HR PRN Administration Saline Flush - Exam Neck: no JVD Heart: RRR Respiratory: CTAB Gastrointestinal: soft Extremities: 1+ LE edema Neurological: no weakness Psychiatric: A&O x 3 Hosp A/P (1) DVT (deep venous thrombosis) Code(s): I82.409 - ACUTE EMBOLISM AND THOMBOS UNSP DEEP VN UNSP LOWER EXTREMITY Status: Acute (2) Generalized weakness Code(s): R53.1 - WEAKNESS Status: Acute (3) Metastatic breast cancer Code(s): C50.919 - MALIGNANT NEOPLASM OF UNSP SITE OF UNSPECIFIED FEMALE BREAST Status: Acute - Plan Continue current therapy.. Possible discharge tomorrow..
[2019-08-08 19:39] VITALS: BP 124/83
[2019-08-09 07:35] VITALS: TEMP 99
[2019-08-09] MEDS: Gabapentin 300 MG CAP PO SCH (07:53)
[2019-08-09] MEDS: Famotidine/PF 20 mg/2ml Vial SLOW IVP SCH (07:53)
[2019-08-09] MEDS: Enoxaparin Sodium 80 MG/0.8 ML SYRINGE SC SCH (07:55)
--- NOTE | 2019-08-09 14:33 | DIS ---
DATE OF ADMISSION: 08/04/2019 DATE OF DISCHARGE: 08/09/2019 ADMITTING DIAGNOSES: 1. Metastatic breast cancer. 2. Left leg deep venous thrombosis. 3. Generalized weakness. DISCHARGE DIAGNOSES: 1. Metastatic breast cancer. 2. Left leg deep venous thrombosis. 3. Generalized weakness. GORE MAKER: 1. Dr. De Dios. 2. Keri. PROCEDURES: Lower extremity Doppler. Abdomen and pelvis CT. Brain CT. CT of the chest. Venogram of the lower extremity. Venous Doppler of the lower extremity. COURSE OF HOSPITALIZATION: Unchanged. The patient was feeling very weak and was made DNR. She is currently being discharged home with hospice. PHYSICAL EXAMINATION: GENERAL: Today, she is alert, oriented, sick looking. VITAL SIGNS: Her latest vital signs show a temperature of 99, pulse rate 93, respiratory rate 17, blood pressure 124/83. HEAD AND NECK: Unchanged. HEART: She has a regular S1, S2. LUNGS: Clear. ABDOMEN: Soft. EXTREMITIES: She has edema of the extremities. NEUROLOGIC: She moves all extremities. As mentioned earlier, the patient is being discharged to home with hospice. DISCHARGE MEDICATIONS: Please see discharge medication reconciliation sheet. Discharge time 32 minutes. Job ID: [id number]
--- NOTE | 2019-08-11 00:02 | PQF ---
SALOME CHRISTIANSON CYPRIEN [id number] CLINICAL DOCUMENTATION CLARIFICATION FORM: POST DISCHARGE Addendum to original discharge summary date: ____ Late entry note date: __ DATE:08/11/19 ATTN: Ольга Gonzalez Please exercise your independent, professional judgment in responding to the clarification form. Clinical indicators are provided on the bottom of this form for your review Please check appropriate box(s) to clarify if the following diagnosis has been ruled in or ruled out: Pneumonia Please check appropriate box(s): [ ] Ruled in diagnosis [ ] Continue to treat [ ] Resolved [ x ] Ruled out diagnosis [ ] Cannot rule out diagnosis [ ] Other diagnosis [ ] Unable to determine In addition, please specify: Present on Admission (POA): [ ] Yes [ ] No [ ] Unable to determine For continuity of documentation, please document condition throughout progress notes and discharge summary. Thank You. CLINICAL INDICATORS - SIGNS / SYMPTOMS / LABS Chest X-ray p2 08/04 Impression: Multifocal patchy parenchymal densities within the RUL and RLL which may related to multifocal Pneumonia H&P p2 08/04 Dr Beltran [address] dr Walton, she has had the opportunity to review the images herself and compare to the most recent restaging done. Treatment was started for possible pneumonia Pulmonology Consult p1 08/04 Dr eD Dios She had a CT of chest done, which showed nodular changes in the right mid lung, which were not there on CT in January Pulmonology Consult p2 08/04 Dr De Dios I think the parenchymal findings in the lungs are indicative of metastatic disease and probably not indicative of Pneumonia RISK FACTORS H&P p3 08/04 Possible multifocal pneumonia H&P p4 08/04 Metastatic breast cancer TREATMENTS NOV 18 Azithromycin NOV 18 Ceftriaxone Pulmonology Consult 08/04 Surinder Olmedo (This form is maintained as a part of the permanent medical record) 2014 [employer] All Rights Reserved [email or web address] [not provided] [email or web address]
== END 2019-08-09 13:10 | disposition hospice, home (50) | DRG 598 ==
LOC: ERS 09:13 → T4-A 14:05
PROVIDERS: ADMIT Internal Medicine; ATTEND Internal Medicine
DX: C50.919 Malignant neoplasm of unspecified site of unspecified female breast (principal); C78.7 Secondary malignant neoplasm of liver and intrahepatic bile duct; C79.31 Secondary malignant neoplasm of brain; I82.442 Acute embolism and thrombosis of left tibial vein; Z66 Do not resuscitate; Z51.5 Encounter for palliative care; E03.9 Hypothyroidism, unspecified; F32.9 Major depressive disorder, single episode, unspecified; E78.5 Hyperlipidemia, unspecified; Z88.5 Allergy status to narcotic agent; Z28.21 Immunization not carried out because of patient refusal; Z88.8 Allergy status to other drugs, medicaments and biological substances; Z91.041 Radiographic dye allergy status; Z79.899 Other long term (current) drug therapy; Z79.52 Long term (current) use of systemic steroids; Z90.49 Acquired absence of other specified parts of digestive tract; Z90.710 Acquired absence of both cervix and uterus; Z28.82 Immunization not carried out because of caregiver refusal
CPT/HCPCS: 36415; 51701; 70450; 71275; 74177; 80053; 81003; 81015; 82565; 83605; 84484; 85014; 85018; 85025; 85049; 85610; 85730; 87086; 93005; 93970; 94640; 96361; 96365; 96367; 96372; 96375; A4353; J0456; J0696; J1200; J1650; J1720; J2405; J2920; J3490; J7620; Q9967; S0028